=== PATIENT | male | born 1995 | race Two or more races ===

== ENCOUNTER 2016-11-03 10:07 | Emergency (ER) | payer SELFPAY ==
[~2016-11-03] VITALS: Ht 170.2 cm; Wt 74.8 kg
[2016-11-03 10:10] VITALS: BP 129/64
== END 2016-11-03 13:39 | disposition home or self-care (01) ==
LOC: ER 10:09
DX: S92.354G Nondisplaced fracture of fifth metatarsal bone, right foot, subsequent encounter for fracture with delayed healing (principal); X58.XXXD Exposure to other specified factors, subsequent encounter
CPT/HCPCS: 29515; 73630